=== PATIENT | female | born 1970 | race African-American/Black ===

== ENCOUNTER 2021-03-13 01:47 | Emergency (ER) | payer MEDICAID ==
[~2021-03-13] VITALS: Ht 170.2 cm; Wt 99.0 kg
[~2021-03-13 01:47] MED LIST: CLON0.1T PO; HYDR-4133 PO; KEPP500 PO; NITR0.4T49 SL; PHEN100C4 PO
[2021-03-13] MEDS ORDERED: ONDANSETRON HCL 4MG/2ML INJ IV STA (02:25)
[2021-03-13 03:07] LABS: HEMATOCRIT. 37.2 % (36.0-48.0); HEMOGLOBIN. 12.6 g/dL (12.0-16.0); MEAN CORPUSCULAR HEMOGLOBIN 29.5 pg (28.0-32.0); MEAN CORPUSCULAR VOLUME 87.7 fL (81.0-99.0); MEAN PLATELET VOLUME 7.8 fl (7.4-10.4); PLATELET 255 x1000/uL (130-400); RED BLOOD CELL COUNT 4.25 mill/uL (4.2-5.4); RED CELL DISTRIBUTION WIDTH 14.2 % (11.6-14.6)
[2021-03-13 03:13] LABS: CHLORIDE 102 mEq/L (98-107)
[2021-03-13 03:15] LABS: PROTHROMBIN TIME 10.5 sec (9.6-11.0)
[2021-03-13 03:31] VITALS: BP 166/93
[2021-03-13 04:48] LABS: PLATELET ESTIMATE NORMAL
== END 2021-03-13 03:54 | disposition left against medical advice (07) ==
LOC: ER 01:47
DX: G89.18 Other acute postprocedural pain (principal); G40.909 Epilepsy, unspecified, not intractable, without status epilepticus; J45.909 Unspecified asthma, uncomplicated; I11.9 Hypertensive heart disease without heart failure; Z98.890 Other specified postprocedural states; Z88.5 Allergy status to narcotic agent; Z88.6 Allergy status to analgesic agent
CPT/HCPCS: 36415; 80053; 85025; 93005; 99284